=== PATIENT | male | born 1955 | race Caucasian/White ===

== ENCOUNTER 2021-07-29 08:00 | Outpatient (RCR) | payer BC, SELFPAY | END 2021-08-27 07:44 | disposition home or self-care (01) | LOC: HO.PT 08:00 | PROVIDERS: PCP Internal Medicine; Visit Provider Podiatrist Foot & Ankle Surgery | DX: M67.971 Unspecified disorder of synovium and tendon, right ankle and foot (principal) | CPT/HCPCS: 97110; 97112; 97116; 97140; 97161; 97162; 97530 ==

== ENCOUNTER 2021-10-09 14:00 | Outpatient (RCR) | payer BC, SELFPAY | END 2021-11-06 14:54 | disposition home or self-care (01) | LOC: HO.PT 14:00 | PROVIDERS: PCP Internal Medicine; Visit Provider Podiatrist Foot & Ankle Surgery | DX: M67.979 Unspecified disorder of synovium and tendon, unspecified ankle and foot (principal) | CPT/HCPCS: 97110; 97112; 97140; 97162 ==

== ENCOUNTER 2022-06-10 12:43 | Emergency (ER) | payer BC, SELFPAY ==
--- NOTE | ~2022-06-10 | XR_ITS ---
EXAMINATION: XR CHEST CLINICAL INFORMATION: Chest pain COMPARISON: None TECHNIQUE: 2 views of the chest were obtained. FINDINGS: Normal symmetric lung volumes. No parenchymal consolidation. No pleural effusion. No pneumothorax. Cardiomediastinal silhouette and pulmonary vascularity are within normal limits. Aorta is atherosclerotic. No acute osseous abnormalities. XR/XR chest 2V IMPRESSION: No acute findings.
[2022-06-10 12:45] VITALS: BP 150/83; PULSE 71; RESP 20; TEMP 36.5; O2SAT 96; BMI 32.3
--- NOTE | 2022-06-10 12:45 | ECG_ITS ---
Test Reason : CHEST PAIN Blood Pressure : / mmHG Vent. Rate : 072 BPM Atrial Rate : 072 BPM P-R Int : 154 ms QRS Dur : 100 ms QT Int : 388 ms P-R-T Axes : 030 -13 013 degrees QTc Int : 424 ms Sinus rhythm with Premature atrial complexes Intra-ventricular conduction delay Left axis deviation Borderline ECG When compared with ECG of 01-JUL-2012 06:59, Premature atrial complexes are now Present Referred By: Generic ED Physician Electronically Signed By:CARISSA CASTAÑEDA MD
[2022-06-10 12:59] LABS: MANUAL DIFF FLAG NO
[2022-06-10 13:02] LABS: Basophils Percent Auto 0.4 % (0-2); Eosinophils Absolute Auto 0.1 X10*3/uL (0.0-0.4); Eosinophils Percent Auto 1.6 % (0-4); Hematocrit 46.6 % (42.0-52.0); Hemoglobin 15.9 g/dl (14.0-18.0); Imm Gran Abs Auto 0.01 X10*3/uL (0.00-0.03); Imm Gran Pct Auto 0.1 % (0.0-0.4); Lymphocytes Percent Auto 28.6 % (20-40); Mean Corpuscular HGB Conc 34.1 g/dl (31.0-36.0); Mean Corpuscular Hemoglobin 29.8 pg (27.0-33.0); Mean Corpuscular Volume 87.4 fL (80.0-98.0); Mean Platelet Volume 9.8 fL (9.4-12.4); Monocytes Absolute Auto 0.5 X10*3/uL (0.1-1.2); Monocytes Percent Auto 6.7 % (2-11); Neutrophils Absolute Auto 4.3 x10*3/uL (2.0-8.3); Neutrophils Percent Auto 62.6 % (45-73); Platelet Count 152 X10*3/uL (160-400); Red Blood Count 5.33 X10*6/uL (4.60-5.80); Red Cell Distribution Width 12.6 % (11.0-16.0); White Blood Count 6.8 X10*3/uL (4.8-10.8)
[2022-06-10 13:34] LABS: Alanine Aminotransferase 18 U/L (0-40); Albumin Level 4.4 g/dL (3.5-5.0); Alkaline Phosphatase 72 U/L (39-117); Anion Gap 14 (12-20); Aspartate Amino Transferase 16 U/L (5-37); Bilirubin Direct 0.2 mg/dL (0.0-0.5); Bilirubin Total 0.4 mg/dL (0.0-1.0); Blood Urea Nitrogen 13 mg/dL (9-16); Calcium 9.6 mg/dL (8.4-10.2); Carbon Dioxide 23 mmol/L (22-29); Chloride 107 mmol/L (96-108); Creatinine Clr Calc Pharmacy 110.1; Estimated Glomerular Filt Rate > 60; Glucose Random 92 mg/dL (60-115); Lipase 85 U/L (8-78); Potassium 4.1 mmol/L (3.3-5.1); Sodium 140 mmol/L (135-145); Total Protein 6.9 g/dL (6.5-8.0)
[2022-06-10 13:49] LABS: Troponin-I High Sensitivity < 3.5 ng/L (<3.5-35.0)
--- NOTE | 2022-06-10 21:57 | ED_ITS ---
HPI - Chest Pain General Chief Complaint: Chest Pain Stated Complaint: Chest Pain Arm Pain Time Seen by Provider: 06/10/22 21:55 Source: patient Mode of arrival: ambulatory Limitations: no limitations History of Present Illness HPI narrative: Patient is 66 years old male nonsmoker with strong family history of coronary disease otherwise healthy woke up in middle of his sleep 2 days ago with mid chest pain radiating to left side and left arm lasted for about 15-20 minutes felt little dizzy and weak went to sleep woke up in the morning was feeling fine today again around 11:00 o'clock noticed discomfort in left chest lasted for 5- 10 minutes with left arm pain. No shortness of breath no palpitation patient n ever had similar pain in the past. Patient took aspirin earlier today at this time patient does not have any chest pain patient had standing labs done prior to my evaluation which showed normal high sensitive troponin and EKG without ischemic changes patient denies any leg swelling or pain. patient had the flu shot 2 days ago Related Data Allergies Allergy/AdvReac Type Severity Reaction Status Date / Time No Known Allergies Allergy Unverified 05/03/20 14:56 Review of Systems Review of Systems: Yes all other systems are reviewed and are negative [facility] Social History Social History Advance Directives: No Advance Directives Information Provided: No Physical Exam Vital Signs: Vital Signs: Last Vital Signs Temp 97.8 F 06/10/22 23:51 Pulse 54 06/10/22 23:51 Resp 16 06/10/22 23:51 BP 134/72 06/10/22 23:51 Pulse Ox 95 06/10/22 23:51 O2 Del Method 06/10/22 23:51 BMI result Body Mass Index 32.3 Appearance: Alert. Oriented X3. No acute distress. Eyes: PERRLA, No Nystagmus ENT: Pharynx normal. Oral Mucosa moist Neck: Normal inspection. Neck supple. CVS: Normal heart rate and rhythm. Pulses normal. Respiratory: No respiratory distress. Equal air entry bilateral, no wheezing/rales/rhonchi Abdomen: Soft and nontender. Bowel sounds are present, no mass palpable, no CVA tenderness Skin: Skin warm and dry. Normal skin color. Normal skin turgor. Extremities: No lower extremity edema. No calf tenderness Neuro: Oriented X 3. No motor deficit. 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 Result diagrams: 06/10/22 12:54 06/10/22 12:54 Labs: Lab Results 06/10/22 06/10/22 06/10/22 Range/Units 12:54 12:54 12:54 WBC 6.8 (4.8-10.8) X10*3/uL RBC 5.33 (4.60-5.80) X10*6/uL Hgb 15.9 (14.0-18.0) g/dl Hct 46.6 (42.0-52.0) % MCV 87.4 (80.0-98.0) fL MCH 29.8 (27.0-33.0) pg MCHC 34.1 (31.0-36.0) g/dl RDW 12.6 (11.0-16.0) % Plt Count 152 L (160-400) X10*3/uL MPV 9.8 (9.4-12.4) fL Immature Gran % (Auto) 0.1 (0.0-0.4) % Neut % (Auto) 62.6 (45-73) % Lymph % (Auto) 28.6 (20-40) % [place] % (Auto) 6.7 (2-11) % Eos % (Auto) 1.6 (0-4) % Baso % (Auto) 0.4 (0-2) % Lymph # (Auto) 2.0 (1.2-4.9) X10*3/uL [place] # (Auto) 0.5 (0.1-1.2) X10*3/uL Eos # (Auto) 0.1 (0.0-0.4) X10*3/uL Baso # (Auto) 0.0 (0.0-0.2) X10*3/uL Abs Immat Gran (auto) 0.01 (0.00-0.03) X10*3/uL Absolute Neuts (auto) 4.3 (2.0-8.3) x10*3/uL Absolute Nucleated RBC 0.000 (0.0-0.012) X10*3/uL Nucleated RBC % (auto) 0.0 (0.0-0.2) /100WBC PT (10.0-13.1) SEC INR (0.9-1.1) APTT (26.0-36.4) SEC D-Dimer High Sensitivty NG/ML Sodium 140 (135-145) mmol/L Potassium 4.1 (3.3-5.1) mmol/L Chloride 107 (96-108) mmol/L Carbon Dioxide 23 (22-29) mmol/L Anion Gap 14 (12-20) BUN 13 (9-16) mg/dL Creatinine 0.86 (0.5-1.4) mg/dL Estim Creat Clear Calc 110.1 Estimated GFR > 60 Random Glucose 92 (60-115) mg/dL Calcium 9.6 (8.4-10.2) mg/dL Total Bilirubin 0.4 (0.0-1.0) mg/dL Direct Bilirubin 0.2 (0.0-0.5) mg/dL AST 16 (5-37) U/L ALT 18 (0-40) U/L Alkaline Phosphatase 72 (39-117) U/L Troponin I High Sens < 3.5 (<3.5-35.0) ng/L Total Protein 6.9 (6.5-8.0) g/dL Albumin 4.4 (3.5-5.0) g/dL Lipase 85 H (8-78) U/L 06/10/22 06/10/22 06/10/22 Range/Units 22:45 22:45 22:45 WBC (4.8-10.8) X10*3/uL RBC (4.60-5.80) X10*6/uL Hgb (14.0-18.0) g/dl Hct (42.0-52.0) % MCV (80.0-98.0) fL MCH (27.0-33.0) pg MCHC (31.0-36.0) g/dl RDW (11.0-16.0) % Plt Count (160-400) X10*3/uL MPV (9.4-12.4) fL Immature Gran % (Auto) (0.0-0.4) % Neut % (Auto) (45-73) % Lymph % (Auto) (20-40) % [place] % (Auto) (2-11) % Eos % (Auto) (0-4) % Baso % (Auto) (0-2) % Lymph # (Auto) (1.2-4.9) X10*3/uL [place] # (Auto) (0.1-1.2) X10*3/uL Eos # (Auto) (0.0-0.4) X10*3/uL Baso # (Auto) (0.0-0.2) X10*3/uL Abs Immat Gran (auto) (0.00-0.03) X10*3/uL Absolute Neuts (auto) (2.0-8.3) x10*3/uL Absolute Nucleated RBC (0.0-0.012) X10*3/uL Nucleated RBC % (auto) (0.0-0.2) /100WBC PT 12.2 (10.0-13.1) SEC INR 1.1 (0.9-1.1) APTT (26.0-36.4) SEC D-Dimer High Sensitivty < 150 NG/ML Sodium (135-145) mmol/L Potassium (3.3-5.1) mmol/L Chloride (96-108) mmol/L Carbon Dioxide (22-29) mmol/L Anion Gap (12-20) BUN (9-16) mg/dL Creatinine (0.5-1.4) mg/dL Estim Creat Clear Calc Estimated GFR Random Glucose (60-115) mg/dL Calcium (8.4-10.2) mg/dL Total Bilirubin (0.0-1.0) mg/dL Direct Bilirubin (0.0-0.5) mg/dL AST (5-37) U/L ALT (0-40) U/L Alkaline Phosphatase (39-117) U/L Troponin I High Sens < 3.5 (<3.5-35.0) ng/L Total Protein (6.5-8.0) g/dL Albumin (3.5-5.0) g/dL Lipase (8-78) U/L 06/10/22 Range/Units 22:45 WBC (4.8-10.8) X10*3/uL RBC (4.60-5.80) X10*6/uL Hgb (14.0-18.0) g/dl Hct (42.0-52.0) % MCV (80.0-98.0) fL MCH (27.0-33.0) pg MCHC (31.0-36.0) g/dl RDW (11.0-16.0) % Plt Count (160-400) X10*3/uL MPV (9.4-12.4) fL Immature Gran % (Auto) (0.0-0.4) % Neut % (Auto) (45-73) % Lymph % (Auto) (20-40) % [place] % (Auto) (2-11) % Eos % (Auto) (0-4) % Baso % (Auto) (0-2) % Lymph # (Auto) (1.2-4.9) X10*3/uL [place] # (Auto) (0.1-1.2) X10*3/uL Eos # (Auto) (0.0-0.4) X10*3/uL Baso # (Auto) (0.0-0.2) X10*3/uL Abs Immat Gran (auto) (0.00-0.03) X10*3/uL Absolute Neuts (auto) (2.0-8.3) x10*3/uL Absolute Nucleated RBC (0.0-0.012) X10*3/uL Nucleated RBC % (auto) (0.0-0.2) /100WBC PT (10.0-13.1) SEC INR (0.9-1.1) APTT 34.6 (26.0-36.4) SEC D-Dimer High Sensitivty NG/ML Sodium (135-145) mmol/L Potassium (3.3-5.1) mmol/L Chloride (96-108) mmol/L Carbon Dioxide (22-29) mmol/L Anion Gap (12-20) BUN (9-16) mg/dL Creatinine (0.5-1.4) mg/dL Estim Creat Clear Calc Estimated GFR Random Glucose (60-115) mg/dL Calcium (8.4-10.2) mg/dL Total Bilirubin (0.0-1.0) mg/dL Direct Bilirubin (0.0-0.5) mg/dL AST (5-37) U/L ALT (0-40) U/L Alkaline Phosphatase (39-117) U/L Troponin I High Sens (<3.5-35.0) ng/L Total Protein (6.5-8.0) g/dL Albumin (3.5-5.0) g/dL Lipase (8-78) U/L ECG Data ECG #1: Attestation: I personally reviewed and interpreted this ECG as follows: Interpretation: Normal sinus rhythm heart rate 72 beats per minute PACs normal axis normal interval no acute ST-T changes no acute ischemia Discharge Plan Discharge Clinical Impression: Chest pain Patient Disposition: Home, Self-Care Instructions: Chest Pain (ED) Additional Instructions: Take baby aspirin daily Call table worker packager office tomorrow for further evaluation Report to ER if recurrence or worsening of pain Referrals: Vinay Galeana MD [Physician] - 1 day
--- NOTE | 2022-06-10 22:24 | ECG_ITS ---
Test Reason : REPEAT Blood Pressure : / mmHG Vent. Rate : 055 BPM Atrial Rate : 055 BPM P-R Int : 154 ms QRS Dur : 098 ms QT Int : 438 ms P-R-T Axes : 030 011 012 degrees QTc Int : 419 ms Sinus bradycardia Intra-ventricular conduction delay Otherwise normal ECG When compared with ECG of 10-JUN-2022 12:44, Premature atrial complexes are no longer Present Referred By: Hasmukh Roth Electronically Signed By:CARISSA CASTAÑEDA MD
[2022-06-10 23:00] LABS: INTERNATIONAL NORM RATIO 1.1 (0.9-1.1); Prothrombin Time 12.2 SEC (10.0-13.1)
[2022-06-10 23:03] LABS: Partial Thromboplastin Time 34.6 SEC (26.0-36.4)
[2022-06-10 23:04] LABS: D Dimer High Sensitivity < 150 NG/ML
[2022-06-10 23:19] LABS: Troponin-I High Sensitivity < 3.5 ng/L (<3.5-35.0)
[2022-06-10 23:51] VITALS: BP 134/72; PULSE 54; RESP 16; TEMP 36.6; O2SAT 95
== END 2022-06-11 00:01 | disposition home or self-care (01) ==
PROVIDERS: Emergency Provider Internal Medicine; PCP Internal Medicine
DX: R07.89 Other chest pain (principal); M79.602 Pain in left arm; M79.601 Pain in right arm; Z79.899 Other long term (current) drug therapy
CPT/HCPCS: 36415; 71046; 80048; 80076; 83690; 84484; 85025; 85379; 85610; 85730; 93005; 99283

== ENCOUNTER → 2022-06-13 08:50 | Outpatient (REF) | payer BC, SELFPAY ==
--- NOTE | 2022-06-13 08:54 | CA_ITS ---
Acquisition Time: 2022-06-13 08:56:27 Total Exercise Time: 00:09:07 Test Indications: Chest Pain Medications: Protocol: MEGAN Max HR: 144 BPM 92% of Pred: 156 BPM Max BP: 206/050 mmHG Max Work Load: 10.2 METS Exercise stress test with exercise 9 min 7 sec of Megan protocol, acheiving 92% MPHR, 10.2 METs, without anginal symptom, with isolated PVCs, runs of ventricular bigeminy, with hypertensive response to exercise with max BP 206/50, without EKG changes meeting criteria for ischemia, with j point depression and upsloping STs. EKG tracings and report reviewed with Dr Galeana. Referred By: Vinay Galeana Overread By: ALLEGRA MOELLER
== END ==
LOC: HO.CARD 08:50
PROVIDERS: PCP Internal Medicine; Visit Provider Internal Medicine Cardiovascular Disease
DX: R07.9 Chest pain, unspecified (principal)
CPT/HCPCS: 93017

== ENCOUNTER 2022-06-14 09:40 | Outpatient (REF) | payer BC, SELFPAY ==
[2022-06-14 11:35] LABS: Erythrocyte Sedimentation Rate 5 MM/HR (0-15)
[2022-06-16 11:56] LABS: CRP High Sensitivity 4.5 mg/L
== END 2022-06-14 09:41 | disposition home or self-care (01) ==
LOC: HO.LAB 09:40
PROVIDERS: PCP Internal Medicine; Visit Provider Nurse Practitioner Family
DX: R07.89 Other chest pain (principal)
CPT/HCPCS: 36415; 85652; 86141

== ENCOUNTER 2022-06-28 08:23 | Outpatient (REF) | payer BC, SELFPAY ==
[2022-06-28 09:37] LABS: Cholesterol 183 mg/dL; HDL Cholesterol 39 mg/dL; LDL Cholesterol Calculated 122 mg/dl; Triglycerides 110 mg/dL
== END 2022-06-28 08:24 | disposition home or self-care (01) ==
LOC: HO.LAB 08:23
PROVIDERS: PCP Internal Medicine; Visit Provider Internal Medicine Cardiovascular Disease
DX: R07.89 Other chest pain (principal)
CPT/HCPCS: 36415; 80061

== ENCOUNTER 2022-09-08 08:05 | Outpatient (REF) | payer BC, SELFPAY ==
[2022-09-08 09:22] LABS: Cholesterol 132 mg/dL; HDL Cholesterol 40 mg/dL; LDL Cholesterol Calculated 72 mg/dl; Triglycerides 101 mg/dL
== END 2022-09-08 08:06 | disposition home or self-care (01) ==
LOC: HO.LAB 08:05
PROVIDERS: PCP Internal Medicine; Visit Provider Internal Medicine Cardiovascular Disease
DX: R07.89 Other chest pain (principal)
CPT/HCPCS: 36415; 80061

== ENCOUNTER 2023-06-13 09:14 | Outpatient (AMB) | payer MEDICARE, SELFPAY ==
[2023-06-13 09:26] VITALS: BP 124/64; PULSE 80; TEMP 36.9; O2SAT 95; BMI 33.8
--- NOTE | 2023-06-13 09:26 | AM.OFFWIN_ITS ---
Intake Vital Signs 06/13/23 09:26 Height 6 ft Weight 249 lb BMI 33.8 BP 124/64 Blood Pressure Location Rt brachial Position Sitting Pulse 80 Pulse Source Pulse Oximeter Temp 98.5 F Temp Source Oral Pulse Oximetry (%) 95 Oxygen Delivery Method Room Air Intake Visit Reasons: EP Head cold/Sinus Intake Note: Pt is here today c/o h/a, sorethroat, and bilateral ear discomfort x3days Patient Tobacco Use Status: Never used Tobacco Allergies No Known Allergies Allergy (Unverified 06/13/23 09:28) HPI EP Head cold/Sinus HPI Details Patient is a 67-year-old male comes the walk-in clinic complaining of headache, sore throat and ear discomfort for the last 3 days. He also has some associated nausea and anorexia as he does not feel like eating, and states that it is difficult to swallow due to the pain. States pain to his forehead and cheek bone areas were so severe last night that he could not sleep. States that he had some purulence drainage from his nose today. No significant cough, no chest pain or shortness of breath, fever or chills, vomiting or diarrhea, or other significant associated symptoms. He checked for COVID and was negative at home. [facility] Medical History PVCs (premature ventricular contractions) Surgical History Hx of carpal tunnel repair History of cardiac radiofrequency ablation Family History Father Heart valve replaced Mother No problems noted. Social History Patient Tobacco Use Status: Never used Tobacco Review of Systems Const All systems reviewed & are unremarkable except as noted in HPI and below Physical Exam Vital Signs: Last Vital Signs Temp 98.5 F 06/13/23 09:26 Pulse 80 06/13/23 09:26 BP 124/64 06/13/23 09:26 Pulse Ox 95 06/13/23 09:26 Oxygen Delivery Method Room Air 06/13/23 09:26 BMI result Body Mass Index 33.8 Const General: cooperative, healthy appearing, comfortable, no acute distress, alert, awake, Physically active and well groomed; No anxious, diaphoretic, intoxicated appearing, poor hygiene or tired appearing Nutritional Appearance: average body habitus Orientation/consciousness: oriented to person Limitations: no limitations HEENT Head: Yes normal to inspection, Yes normocephalic and Yes atraumatic Ears: hearing grossly normal bilaterally, external ears normal, TM's normal bilaterally and EAC's normal General nose exam: Normal external nose present, No nasal polyps present, Normal septum present, Abnormal mucous membranes and turbinates present and Nasal discharge present Face and sinus: Yes sinus tenderness Mouth: Normal oral and palatal mucosa present, lip normal and tongue normal Throat: Yes abnormal tonsil (mildly erythematous bilaterally), No peritonsillar mass, Yes postnasal drainage, No uvular edema and No cobblestoning Eyes General: appearance normal, both eyes and all related structures Neck Neck: Yes normal visual inspection, Yes no lymphadenopathy, Yes trachea midline, Yes supple and No anterior neck swelling Resp Effort & Inspection: normal respiratory effort, able to speak in complete sentences, no audible wheezes, no cough, no grunting, not labored, no nasal flaring, no retractions and symmetric chest movement Auscultation: clear to auscultation bilaterally, no crackles, no rales, no rhonchi, no wheezes, lung sounds not diminished and No rub present Cardio Palpation: normal PMI Rate: regular rate Rhythm: regular rhythm Heart sounds: S1 normal heart sound present and S2 normal heart sound present Skin Other: Good color, warm and dry Neuro General: oriented to person Psych Appearance: grossly normal Mental Status: mental status grossly normal Speech and movement: Normal speech and movement present Affect: normal affect Attitude: cooperative Thought process: Normal thought process present Insight: Good insight present (Psych) Judgement: Good judgement present (Psych) Results AMB Rapid Strep AMB Rapid Strep Negative Last Edit by Itzel Hope CMA on 06/13/23 09:45 Results Reviewed Results Reviewed: Laboratory Last Values Strep Scn Rapid Clinic Negative 06/13/23 09:44 negative rapid strep Assessment & Plan Assessment & Plan (1) Sinusitis: Code(s): J32.9 - Chronic sinusitis, unspecified Qualifiers: Chronicity: acute Recurrence: non-recurrent Sinusitis location: frontal Qualified Code(s): J01.10 - Acute frontal sinusitis, unspecified Plan: Patient was negative for COVID on home rapid tests, but will do respiratory panel today to rule out COVID, as well as flu and RSV. Pending these results. I do think a virus is the likely cause of his symptoms, and I think that taking ibuprofen or another anti-inflammatory will be the best option for him. However due to the apparent purulent discharge as well as his complaint of severe pain keeping him up at night, I did write him for a course of Augmentin, to take if symptoms are not improving in the next few days with the [id number] Mucinex and cough medicine. Orders: Orders SARS-CoV2/FLU/RSV Today R05.9 - Cough, unspecified AMB Rapid Strep Screen Today Z13.9 - Encounter for screening, unspecified Medications: New amoxicillin-pot clavulanate 875-125 mg 1 tab PO BID 10 tabs 0RF Coding Level of Care Code Est Pt Level 4 (63179) Diagnoses Acute non-recurrent frontal sinusitis J01.10 Chronicity: acute Recurrence: non-recurrent Sinusitis location: frontal
== END 2023-06-13 12:34 | disposition home or self-care (01) ==
PROVIDERS: PCP Internal Medicine; Visit Provider Physician Assistant Medical
DX: J01.10 Acute frontal sinusitis, unspecified (principal); J02.9 Acute pharyngitis, unspecified
CPT/HCPCS: 87880; 99214

== ENCOUNTER 2023-06-13 09:44 | Outpatient (REF) | payer MEDICARE, SELFPAY | END 2023-06-13 09:45 | disposition home or self-care (01) | LOC: HO.LAB 09:44 | PROVIDERS: Visit Provider Physician Assistant Medical | DX: Z13.89 Encounter for screening for other disorder (principal) ==

== ENCOUNTER 2023-06-13 11:34 | Outpatient (REF) | payer MEDICARE, SELFPAY ==
[2023-06-13 13:21] LABS: Influenza A PCR NEGATIVE (Negative); Influenza B PCR NEGATIVE (Negative); Resp Syncy Virus RNA Qual PCR NEGATIVE (Negative); SARS COV2 PCR INHOUSE NEGATIVE (Negative)
== END 2023-06-13 11:35 | disposition home or self-care (01) ==
LOC: HO.LNP 11:34
PROVIDERS: Visit Provider Physician Assistant Medical
DX: Z11.52 Encounter for screening for COVID-19 (principal); Z20.822 Contact with and (suspected) exposure to COVID-19; R05.9 Cough, unspecified
CPT/HCPCS: 0241U

== ENCOUNTER 2023-06-24 08:59 | Outpatient (AMB) | payer MEDICARE, SELFPAY ==
--- NOTE | 2023-06-24 09:38 | AM.OFFWIN_ITS ---
Intake Vital Signs 06/24/23 09:40 Height 6 ft Weight 249 lb BMI 33.8 BP 122/64 Blood Pressure Location Lt brachial Position Sitting Pulse 96 Pulse Source Pulse Oximeter Temp 98.9 F Temp Source Temporal Artery Scan Pulse Oximetry (%) 100 Oxygen Delivery Method Room Air Intake Visit Reasons: EST/ sore throat/cough(lobby masked) Intake Note: Pt is here c/o sore throat, coigh and ongoing headache. Pt states he has been feeling like this for two weeks. Pt states he was on amoxicillin and it didn't help. Patient Tobacco Use Status: Never used Tobacco Allergies No Known Allergies Allergy (Verified 06/24/23 10:12) Medication List - Last Reconciled 06/24/23 by KIN Fermin- aspirin (Adult Aspirin Regimen) 81 mg PO DAILY atorvastatin 40 mg PO DAILY cetirizine (24Hour Allergy) 10 mg PO DAILY PRN finasteride 5 mg PO DAILY fluoxetine 20 mg PO DAILY ibuprofen 600 mg PO Q6H PRN tamsulosin 0.8 mg PO DAILY Do you need a note to return to daycare/school/sports/work: No HPI HPI Comments History of Present Illness Details Here today he has complaints of flu-like symptoms. Reports has been sick for > 2 weeks. Was treated with amoxicillin June 13. He completed the course but does not feel any better. Addition he has been taking Mucinex DM along with Motrin. Today he complains of a cough, left ear pain, headache, painful swallowing, hoarse voice. Reports that he was found negative for flu and COVID back on the 13 of June. He denies recent travel, associated with similar symptoms, chest pain, shortness of breath. [facility], [facility] Medical History PVCs (premature ventricular contractions) Surgical History Hx of carpal tunnel repair History of cardiac radiofrequency ablation Family History Father Heart valve replaced Mother No problems noted. Social History Patient Tobacco Use Status: Never used Tobacco Review of Systems Const All systems reviewed & are unremarkable except as noted in HPI and below Physical Exam Vital Signs: Last Vital Signs Temp 98.9 F 06/24/23 09:40 Pulse 96 06/24/23 09:40 BP 122/64 06/24/23 09:40 Pulse Ox 100 06/24/23 09:40 Oxygen Delivery Method Room Air 06/24/23 09:40 BMI result Body Mass Index 33.8 Const Other: awake alert mildly ill appearing but in NAD PERRLA, EOMI, Scleras clear bilat TM intact clear on R, injected on L + L max and frontal sinus tenderness to palp. turbinates on L edematous & erythematous, mucoid d/c left nares RRR LS CTAB. hacking cough w/o distress noted during exam Skin PWD Results AMB Rapid Strep AMB Rapid Strep Negative Last Edit by Katelynn Almonte CMA on 06/24/23 09:50 Results Reviewed Results Reviewed: Laboratory Last Values Strep Scn Rapid Clinic Negative 06/24/23 09:49 Assessment & Plan Assessment & Plan (1) Flu-like symptoms: Code(s): R68.89 - Other general symptoms and signs Plan VIRAL SWAB OBTAINED TODAY, IF NEGATIVE STOP AB. I HAVE SENT IN [place] AND AB TO COVER SINUSIITS. CXR TO BE DONE GIVEN THE CONT COUGH. ADVISED TO STOP MUCINEX DM. START FLONASE OTC. USE DIRECTED. IF VIRAL SWAB NEG OK TO CONT AB DIRECTED ALONG W [place]. IF NO IMPROVEMENT, RETURN TO CLINIC Orders: Orders SARS-CoV2/FLU/RSV Today R68.89 - Other general symptoms and signs RAKESH Fermin AMB Rapid Strep Screen Today Z13.9 - Encounter for screening, unspecified Papi Salinas MD XR chest 2V Today R68.89 - Other general symptoms and signs RAKESH Fermin Medications: New benzonatate 100 mg PO TID 10 days PRN 30 caps 1RF cough ARKESH Fermin azithromycin For 250 mg dose pack: take 500 mg today (day 1), then 250 mg for 4 days (days 2-5) PO 5 days 6 tabs 0RF RAKESH Fermin Coding Level of Care Code Est Pt Level 3 (03661) Diagnoses Flu-like symptoms R68.89
[2023-06-24 09:40] VITALS: BP 122/64; PULSE 96; TEMP 37.2; O2SAT 100; BMI 33.8
== END 2023-06-24 10:50 | disposition home or self-care (01) ==
PROVIDERS: PCP Internal Medicine; Visit Provider Nurse Practitioner Family
DX: R68.89 Other general symptoms and signs (principal); J02.9 Acute pharyngitis, unspecified
CPT/HCPCS: 87880; 99213

== ENCOUNTER 2023-06-24 10:20 | Outpatient (REF) | payer MEDICARE, SELFPAY ==
--- NOTE | ~2023-06-24 | XR_ITS ---
EXAMINATION: XR CHEST CLINICAL INFORMATION: Malaise. COMPARISON: 06/10/2022 TECHNIQUE: 2 views of the chest were obtained. FINDINGS: The lungs are moderately expanded. No focal consolidation. No pleural effusion. Cardiac silhouette is unchanged. XR/XR chest 2V IMPRESSION: No acute abnormality.
[2023-06-24 14:00] LABS: Influenza A PCR NEGATIVE (Negative); Influenza B PCR NEGATIVE (Negative); Resp Syncy Virus RNA Qual PCR NEGATIVE (Negative); SARS COV2 PCR INHOUSE NEGATIVE (Negative)
== END 2023-06-24 10:21 | disposition home or self-care (01) ==
LOC: HO.HMGCX 10:20
PROVIDERS: PCP Internal Medicine; Visit Provider Nurse Practitioner Family
DX: R68.89 Other general symptoms and signs (principal); Z20.822 Contact with and (suspected) exposure to COVID-19
CPT/HCPCS: 0241U; 71046

== ENCOUNTER 2024-11-18 09:00 | Outpatient (AMB) | payer MEDICARE, SELFPAY ==
--- NOTE | 2024-11-18 09:06 | AM.OFFWIN_ITS ---
Intake Vital Signs 11/18/24 09:08 Height 6 ft BP 120/72 Blood Pressure Location Lt brachial Position Sitting Pulse 80 Pulse Source Pulse Oximeter Temp 97.9 F Temp Source Oral Pulse Oximetry (%) 98 Intake Visit Reasons: EP Neck pain Patient Tobacco Use Status: Never used Tobacco Allergies No Known Allergies Allergy (Verified 11/18/24 09:08) Do you need a note to return to daycare/school/sports/work: No HPI EP Neck pain HPI Details This is a 68-year-old male patient who presents to the walk-in clinic today with a 4 day history of posterior neck pain, right greater than left. He denies any injury or trauma to neck. No history of cervical surgery. He states that this past Thursday, he woke up and neck was very stiff. Since then, he has tried heat and ice application, topical creams including CBD cream. He states he also took 3 ibuprofen this morning without any relief. States that neck feels very stiff/tight with increased pain towards his right clavicle. No weakness or radiation down arms. Denies any numbness or tingling. [facility] Medical History PVCs (premature ventricular contractions) Surgical History Hx of carpal tunnel repair History of cardiac radiofrequency ablation Family History Father Heart valve replaced Mother No problems noted. Social History Patient Tobacco Use Status: Never used Tobacco Review of Systems Const All systems reviewed & are unremarkable except as noted in HPI and below Physical Exam Vital Signs: Last Vital Signs Temp 97.9 F 11/18/24 09:08 Pulse 80 11/18/24 09:08 BP 120/72 11/18/24 09:08 Pulse Ox 98 11/18/24 09:08 Const Other: uncomfortable due to neck pain General: cooperative HEENT Head: Yes normal to inspection Ears: hearing grossly normal bilaterally General nose exam: Normal external nose present Neck Neck: Yes no lymphadenopathy Resp Effort & Inspection: normal respiratory effort Auscultation: clear to auscultation bilaterally Cardio Rate: regular rate Rhythm: regular rhythm Back/Spine/Pelvis Other: negative spurling Cervical Spine: cervical muscular tenderness (bilateral, R>L), pain with cervical ROM, cervical spasm and cervical ROM abnormal (minimal lat rotation/side bending and extension, all about 5 degrees) Skin General skin exam: no rashes or lesions noted Neuro General: gait normal and moves all extremities Cognition (Neuro): normal cognition Extrem Other: normal shoulder ROM b/l General: Yes full ROM, Yes capillary refill normal and Yes no clubbing, cyanosis or edema Psych Appearance: grossly normal Mental Status: mental status grossly normal Speech and movement: Normal speech and movement present Assessment & Plan Assessment & Plan (1) Cervical strain, acute: Code(s): S16.1XXA - Strain of muscle, fascia and tendon at neck level, initial encounter Qualifiers: Encounter type: initial encounter Qualified Code(s): S16.1XXA - Strain of muscle, fascia and tendon at neck level, initial encounter Plan: Cervical x-ray obtained in the office today shows no acute abnormalities, however moderate spondylosis most significant spanning C4-C7. Patient is in significant pain on exam with extremely stiff/limited mobility of neck. I am going to start him on short course of prednisone and muscle relaxers. We reviewed indications, use, possible side effects of medications. I encouraged ongoing heat application, gentle stretching and massage. If he does not begin to improve with time and treatment, he should return to the clinic or PCP for further evaluation. Patient verbalizes understanding and agrees to plan. Orders: Orders XR cervical spine 2V Today M54.2 - Cervicalgia Medications: New cyclobenzaprine Take up to three times a day as needed for muscle pain/spasms. 10 mg PO TID 5 days PRN 15 tabs 0RF muscle spasm S16.1XXA - Strain of muscle, fascia and tendon at neck level, initial encounter prednisone Take 2 tabs daily for 5 days. 40 mg (2 x 20 mg) PO DAILY 5 days 10 tabs 0RF S16.1XXA - Strain of muscle, fascia and tendon at neck level, initial encounter Coding Level of Care Code Est Pt Level 4 (87335) Diagnoses Acute strain of neck muscle, initial encounter S16.1XXA Encounter type: initial encounter
[2024-11-18 09:08] VITALS: BP 120/72; PULSE 80; TEMP 36.6; O2SAT 98
--- OUTSIDE RECORDS SUMMARY | 2024-11-18 09:37 | XMS_ITS | Patient Health Record ---
Author Organization [facility] Reginald Montesinos Address [address] [facility] [place] [address] Care Team Providers Care Risk Assessment Consultant Name Role Phone Carlos Ivy MD Primary Care Provider Unavailabl e Black, Nury Unavailable [phone] Allergies Allergen (clinical drug ingredient) Drug/Non Drug Allergy documented on EMR Reaction Allergy Type Onset Date Status Dust Mite Mixed Allergen Ext Unknown Drug Allergy Active Reason For Referral No Information Medications Medication SIG (Take, Route, Frequency, Duration) Notes Start Date End Date Status Naproxen Not-Taking Diclofenac Sodium 3 % 1 application to a ffected area Transdermal Twice a day for 30 day(s) 05/16/2019 Not-Taking Diclofenac Sodium 1 % as directed Transd ermal Twice a day for 30 days 05/23/2019 Not-Taki ng Lipitor 40 MG 1 tablet Orally Once a day Active [employer] as directed 11/15/2021 Active Tamsulosin HCl 0.4 MG 1 capsule Orally O nce a day for 30 day(s) Active Ibuprofen prn Active Finasteride Active Immunizations Vaccine Route Administration Date Status Comme nts COVID-19 Pfizer BioNTech Vaccine Unknown 07/22/2021 Administered 1st 11/20/2020 2nd 12/11/2020 Social History Tobacco Use: Social History Observation Description Date Details (start date - stop date) Never Smoker NA - NA Tobacco Use/Smoking Question Answer Notes Are you a: nonsmoker Additional Findings: Tobacco Non-User Current no n-smoker Alcohol Screen Question Answer Notes Did you have a drink containing alcohol in the p ast year? No Points 0 Interpretation Negative Tobacco use other than smoking: Question Answer Notes Are you an other tobacco user? No Problems Problem Type SNOMED Code ICD Code Onset Dates Problem Status W/U Status Risk Notes Problem Localized, primary osteoarthritis of the ankle and/or foot (451952153) Primary osteoarthritis , right ankle and foot (M19.071) Active confirmed Problem Localized, primary osteoarthritis of the ankle and/or foot (297481241) Primary osteoarthritis , left ankle and foot (M19.072) Active confirmed Problem 32875585 Lower limb length difference (M21.70) Active confirmed Plan Of Treatment Pending Test Test Name Order Date X ray : Foot, left 2V 08/22/2021 X ray : Foot, right 2V 08/22/2021 X ray : Foot, right 3V 08/07/2014 X ray : Foot, right 3V 03/24/2017 09577, J0702- INJECT or DRAIN, JOINT/BUR SA 07/14/2022 14814, X3708-MTNXH/INJECT, JOINT/BURSA 0 04/24/2022 02340,[id number]-NAM TENDON SHEATH/LIGAMENT 0 03/24/2017 08936, J0702- Neuroma/Injection 05/08/20 11 Insurance Providers Payer Name Payer Address Payer Phone Subscriber Number Group Number Insured Name Patient Relationship to Insured Coverage Start Date Coverage End Date Srinath Araiza [address] [place] [address] [id number] Hai Gutierrez Self - patient is the insured Medical (General) History Medical History History ICD Code measles hypertension chicken pox back, hip, knee pain Arthritis Surgical History Surgery Date(Month/Year) finger surgery 1982 vasectomy 1992 bilateral elbow surgery and carpal tunne l 07/2013 Prostate biopsy 02/11/2017 R foot surgery 01/22/21
--- OUTSIDE RECORDS SUMMARY | 2024-11-18 09:37 | XMS_ITS | Continuity of Care Document ---
Author Organization [facility] [address] [address]- Care Team Providers Care Student Affairs Vice President Name Role Phone Carlos Ivy MD Primary Care Physician Encounter [facility] [place] Date(s): 11/07/24 - 11/14/24 [facility] [address] [address] Attending Physician: Shlomo Sullivan MD Referring Physician: Carlos Ivy MD Encounter Type: Office Visit Allergies, Adverse Reactions, Alerts No Known Allergies Immunizations Given and Recorded Vaccine Date Status Refusal Reason influenza virus vaccine, inactivated 05/29/23 David rded influenza virus vaccine, inactivated 06/08/22 David rded influenza virus vaccine, inactivated 05/20/21 David rded influenza virus vaccine, inactivated 1 05/29/17 Re corded influenza virus vaccine, inactivated 07/19/16 Give n influenza virus vaccine, inactivated 05/14/15 Give n influenza virus vaccine, inactivated 2 05/17/14 Re corded influenza virus vaccine, inactivated 07/08/13 Give n pneumococcal 20-valent conjugate vaccine 01/19/23 Given tetanus-diphtheria toxoids (Td) 08/25/22 Given SARS-CoV-2 (COVID-19) mRNA BNT-162b2 vac 07/22/21 Recorded SARS-CoV-2 (COVID-19) mRNA BNT-162b2 vac 12/11/20 Recorded SARS-CoV-2 (COVID-19) mRNA BNT-162b2 vac 11/20/20 Recorded zoster vaccine, inactivated 08/01/20 Recorded zoster vaccine, inactivated 05/08/20 Recorded Influenza Virus Vaccine (oldterm) 05/26/19 Recorde d FluLaval (oldterm) 3 04/30/12 Given Tet/Diphth/Acel, Pertussis (oldterm) 11/25/11 Give n 1Result Comment: [06/01/2017] [facility] 2Result Comment: [05/19/2014] Done at work 3Admin Note: [employer] [facility] Medications aspirin 81 mg oral capsule 1 capsule = 81 mg, By Mouth, Every 4 hours, 0 Refills, Maintenance, 06/12/22 8:06:00 AM EDT, Partial fill upon patient request if the prescription is for a schedule II opioid drug. Start Date: 06/12/22 Status: Ordered Repeat number: 1 atorvastatin 40 mg oral tablet 1 tablet = 40 mg, By Mouth, Daily, # 90 tablet, 1 Refills, Maintenance, 06/06/24 1:05:00 PM EDT, Tablet, [facility], Partial fill upon patient request if the prescription is for a schedule II opioid drug., 183.9, cm, 02/01/24 7:48:00 EDT, Height Start Date: 06/06/24 Status: Ordered Quantity: 90.0 Unit: tablet Repeat number: 2 CeleBREX 200 mg oral capsule 1 capsule = 200 mg, By Mouth, Daily, 0 Refills, Maintenance, 02/01/24 7:55:00 AM EDT, Partial fill upon patient request if the prescription is for a schedule II opioid drug. Start Date: 02/01/24 Status: Ordered Repeat number: 1 CPAP Equipment See Instructions, # 1 each, Refills 11, Tot. Refills 11, Maintenance, Dx: PAULO Head gear, Mask, cushion, filter, water chamber. Use qhs, 11/16/20 8:08:00 AM EDT, Supply Start Date: 11/16/20 Status: Ordered Quantity: 1.0 Unit: each Repeat number: 12 CPAP Equipment See Instructions, # 1 each, Refills 11, Tot. Refills 11, Maintenance, CPAP 12- DX: PAULO MASK, TUBING,FILTERS,HEAD GEAR, CHIN STRAP AND WATER CHAMBER, 11/20/16 1:13:39 PM EDT, Compound Start Date: 11/20/16 Status: Ordered Quantity: 1.0 Unit: each Repeat number: 12 finasteride 5 mg oral tablet 1 tablet = 5 mg, By Mouth, Daily, # 90 tablet, 0 Refills, Maintenance, 01/14/22 3:13:00 PM EDT, Tablet, Partial fill upon patient request if the prescription is for a schedule II opioid drug. Start Date: 01/14/22 Status: Ordered Quantity: 90.0 Unit: tablet Repeat number: 1 Flonase = 50 mcg, Daily, 0 Refills, Maintenance, 02/01/24 7:55:00 AM EDT, Partial fill upon patient request if the prescription is for a schedule II opioid drug. Start Date: 02/01/24 Status: Ordered Repeat number: 1 FLUoxetine 20 mg oral capsule 1, capsule, By Mouth, Daily, # 90 capsule, Refills 1, Maintenance, 08/30/24 1:52:00 PM EST, Route toPharmacy Electronically, [facility], 183.9, cm, 02/01/24 7:48:00 EDT, Height Start Date: 08/30/24 Status: Ordered Quantity: 90.0 Unit: capsule Repeat number: 1 Multivitamin Daily, 0 Refills, Maintenance, 01/14/22 3:14:00 PM EDT, Partial fill upon patient request if the prescription is for a schedule II opioid drug. Start Date: 01/14/22 Status: Ordered Repeat number: 1 tamsulosin 0.4 mg oral capsule 180 capsule, Refills 0, 02/25/22 1:23:00 PM EDT, Partial fill upon patient request if the prescription is for a schedule II opioid drug. Start Date: 02/25/22 Status: Ordered Repeat number: 1 Vitamin D2 2000 intl units oral capsule 1 capsule = 50 mcg, By Mouth, Daily, with food, # 60 capsule, 0 Refills, Maintenance, 01/14/22 3:14:00 PM EDT, Capsule, Partial fill upon patient request if the prescription is for a schedule II opioid drug. Start Date: 01/14/22 Status: Ordered Quantity: 60.0 Unit: capsule Repeat number: 1 Problem List Condition Confirmation Course Effective Dates Status Health Status Informant Anxiety Confirmed Active BPH with elevated PSA Confirmed Active Carpal tunnel Confirmed 11/25/11 Active Cataract Confirmed Active Colonoscopy 1, 2 Confirmed Active Coronary artery disease Confirmed Active Glucose intolerance Confirmed Active Dyspnea Confirmed Active Right foot pain Confirmed Active Gastroesophageal reflux disease with hiatal hernia 3 Confirmed Active History of diverticulitis of colon Confirmed Active Headache disorder Confirmed Active Internal and external hemorrhoids without complication 4 Confirmed Active Hypercholesterolemia Confirmed Active Glucose intolerance (impaired glucose tolerance) Confirmed Active Abdominal pain, chronic, left upper quadrant Confirmed Active Malaise and fatigue Confirmed Active Moderate major depression, single episode Confirmed Active Near syncope 5 Confirmed Active NSVT (nonsustained ventricular tachycardia) Confirmed Active Obese class I Confirmed Active Obesity (BMI 30-39.9) Confirmed Active PAULO (obstructive sleep apnea) Confirmed Active Psoriasis Confirmed Active Elevated PSA 6 Confirmed Active Thrombocytopenia Confirmed Active Vitreous degeneration, bilateral 7 Confirmed Active 46608; repeat 2026 2colo 2009 nl, repeat colo 2019 3egd 2009 no barretts per pt. 4colo 2019 likely neurocardiogenic, followed by heather 6Followed by Dr. Mcginnis 7dxed by Avelino Vital Signs Most recent to oldest [Reference Range]: 1 Height 183.9 cm (11/07/24 10:37 AM) Weight 117 kg (11/07/24 10:37 AM) Body Mass Index [18.5-24.99 kg/m2] 34.6 kg/m2 *>HHI* (11/07/24 10:37 AM) Weight Obtained Via Standing scale (11/07/24 10:37 AM) Social History Social History Type Response Smoking Status Never smoker; Tobacc o user in household: No entered on: 04/21/17 Sex Sex Representation Male (finding) Patient Care team information Care Team Personnel Name: Carlos Ivy MD Position: S Physician - Primary Care Member Role: PCP Address: [address] [place] [address]- Telecom: Care Team Related Persons Name: BROOKE OTT Insurance Providers Guarantor name: OSMEL OTT Health Plan Information #: 1 Payer: NA Member Number: [id number] Policy Number: NA Group Number: NA Health Plan Information #: 2 Payer: NA Member Number: [id number] Policy Number: NA Group Number: NA
--- OUTSIDE RECORDS SUMMARY | 2024-11-18 09:38 | XMS_ITS | Clinical Summary ---
Author Organization [facility] Address [address] [place] [address] Care Team Providers Care Cut Off Saw Operator Metal Name Role Phone Carlos Ivy MD Primary Care Provider [phone] Allergies Active Allergy Reactions Criticality Noted Date Comments Mite (D. Farinae) 07/14/2022 Other reaction(s): Unknown Medications Medication Sig Dispensed Refills Start Date End Date Status finasteride (PROSCAR) 5 MG tablet 0 05/30/2022 Active tamsulosin (FLOMAX) 0.4 MG CAPS 1 capsule 0 09/14/2017 Active methylPREDNISolone (Medrol) 4 MG tablet follow package directions 21 tablet 0 10/07/2022 Active Active Problems No known active problems Social History Tobacco Use Types Packs/Day Years Used Date Smoking Tobacco: Never Smokeless Tobacco: Never Tobacco Cessation:Counseling Given: Not Answered Alcohol Use Standard Drinks/Week Comments Not Currently 0 (1 standard drink = 0.6 oz pur e alcohol) Sex and Gender Information Value Date Recorded Sex Assigned at Not on file Gender Identity Not on file Sexual Orientation Not on file Job Start Date Occupation Industry Not on file Not on file Not on file Last Filed Vital Signs Vital Sign Reading Time Taken Comments Blood Pressure - - Pulse - - Temperature - - Respiratory Rate - - Oxygen Saturation - - Inhaled Oxygen Concentration - - Weight 106.6 kg (235 lb) 10/07/2022 11:14 AM EST Height 182.9 cm (6') 10/07/2022 11:14 AM EST Body Mass Index 31.87 10/07/2022 11:14 AM EST Plan of Treatment Health Maintenance Due Date Last Done Comments Hepatitis C Screening 1957 Depression Screening 1969 BMI Counseling 12/14/1975 Preventative Health Evaluation 12/14/1975 Colon Cancer Screening (Colonoscopy) 2002 DTap / Tdap / Td (1 - Tdap) 08/26/2022 08/25/2022 Fall Risk Assessment 2022 Pneumococcal Vaccine (1 of 1 - PCV) 2022 COVID-19 Vaccine (4 - season) 2024 07/22/2021, 12/11/2020, 11/20/2020 Influenza Vaccine (#1) 2024 2, 05/20/2021, 05/29/2017, Additional history exists RSV Adult > 60+ Yrs or (1 - 1-dose 75+ series) 2032 Shingrix-Zoster Vaccine Completed 08/01/2020, 05/08 Hepatitis B Vaccines Aged Out No long er eligible based on patient's age to complete this topic RSV Ped < 20 months Aged Out No longe r eligible based on patient's age to complete this topic Care Teams Cut Off Saw Operator Metal Relationship Specialty Start Date End Date Carlos Ivy MD [address] [place] [address] PCP - General Internal Medicine 06/24/22
--- OUTSIDE RECORDS SUMMARY | 2024-11-18 09:38 | XMS_ITS | Data Portability ---
Author Organization [place] [facility] Address [address] [place] [id number] Care Team Providers Care Golf Course Superintendent Name Role Phone DENNYS FOSTER Primary Care Provider Assessment Encounter Date Assessment Date Assessment LastModified by Organization Details LastModified Time 05/20/2024 05/20/2024 68-year-old male presents for updated audiometric testing. Otologic exam is unremarkable today. Audiometric testing shows stable high-frequency sensorineural hearing loss bilaterally which is only slightly asymmetrical. Would recommend continued observation with repeat hearing test in 1 year or sooner for acute changes. All questions were answered. [email or web address] Not available 05/20/2024 14:05:53 Plan of Treatment Reminders Order Date Submit Date Provider Last Modified By Organization Details Last Modified Time Details Appointments Establish ed 15 2024 10:00A M MARINA ROMO PA-C Not available Not available Not available Lab None recorded. Referral None recorded. Procedures None recorded. Surgeries None recorded. Imaging None recorded. Medication Orders None recorded. Patient TargetsNo targets recorded. Patient InstructionsNo instructions recorded. Reason for Referral None Reported. Results Created Date Observation Date Name Description Value Unit Range Abnormal Flag Note LastModifiedBy Organization Detail LastModifiedTime 05/20/20 24 audio gram No observ ation record ed. [email or web address] Not Available 2023 15:00:52 Result Notes None recorded. Problems Name Problem SNOMED Code Status Onset Date Resolution Date Notes Provider Name and Address Organization Details Recorded Time Chronic rhinitis 47548033 Active 2020 Chronic rhinitis; Note: Date Diagnosed : 01/11/2021 2:46 PM (J31.0) Not Available [facility] 03:09:32 Sensorine ural hearing loss of bilateral ears 292271050 Active 2020 Sensorine ural hearing loss, bilateral ; Note: Date Diagnosed : 1 3:53 PM (H90.3) Not Available [facility] 4 03:09:32 Bilateral tinnitus 61231430549 02 Active 2020 Tinnitus, bilateral ; Note: Date Diagnosed : 1 3:53 PM (H93.13) Not Available [facility] 4 03:09:32 Obstructi ve sleep apnea syndrome 86494264 Active 2020 Obstructi ve sleep apnea (adult) (pediatri c); Note: Date Diagnosed : 01/11/2021 2:47 PM (G47.33) Not Available [facility] 4 03:09:32 Deviated nasal septum 096780349 Active 2020 Deviated nasal septum; Note: Date Diagnosed : 05/20/2021 1:16 PM (J34.2) Not Available [facility] 4 03:09:31 Problem Notes None recorded. Procedures Surgical History Date Name Laterality Status Provider Name and Address Organization Details Recorded Time 05/20/2024 Comp Audio with Tymps (53901 & 11972) completed ARIE SHAFFER [place], [facility], [address], [place] - [facility] 05/20/2024 13:37:31 Imaging Results Imaging Date Name Status LastModified by Organiz ation Details LastModified Time 05/20/2024 audiogram completed [email or web address] Information no t available 05/20/2024 15:00:52 Procedure Notes None recorded. Medical Equipment None Reported. Medications Name Sig Start Date Stop Date Status Note LastModified by Organization Details LastModified Time celecoxib 200 mg capsule TAKE 1 CAPSULE BY MOUTH EVERY DAY active Not Available Not Available No t Available atorvasta tin 40 mg tablet active Not Available Not Available Not Available azithromy samanta 250 mg tablet TAKE 2 TABLETS BY MOUTH TODAY, THEN TAKE 1 TABLET DAILY FOR 4 DAYS DIRECTED active Not Available Not Available No t Available ondansetr on HCl 4 mg tablet 2020 active Medicati on ID: [id number] B rand Name: ace snow HCl Send Method: E-Prescr ibed Sub s Allowed: subs OK Medic ationGen ericName : ondanset gwendolyn HCl Not Available Not Available Not Available tamsulosi n 0.4 mg capsule active Not Available Not Available Not Available benzonata te 100 mg capsule TAKE 1 CAPSULE BY MOUTH 3 TIMES A DAY NEEDED FOR COUGH FOR 10 DAYS active Not Available Not Available No t Available azelastin e 137 mcg (0.1 %) nasal spray 2 spray 2020 active Medicati on ID: [id number] D uration Value: 30 Prescri bed By Name: Kee Valera nd Name: azelasti ne Send Method: E-Prescr ibed Sub s Allowed: subs OK Medic ationGen ericName : azelasti ne Not Available Not Available Not Available fluoxetin e 20 mg capsule active Not Available Not Available Not Available ipratropi um bromide 21 mcg (0.03 %) nasal spray 2 spray 05/20 completed Medicati on ID: [id number] P rescribe d By Name: Kee Valera nd Name: ipratrop ium bromide Send Method: E-Prescr ibed Sub s Allowed: subs OK Medic ationGen ericName : ipratrop ium bromide Not Available Not Available Not Available finasteri de 5 mg tablet active Not Available Not Available Not Available amoxicill in 875 mg-potass ium clavulana te 125 mg tablet TAKE 1 TABLET BY MOUTH TWICE A DAY active Not Available Not Available No t Available Vitals Date Recorded Body height Body mass index (BMI) Body weight Provider Name and Address Organization Details Last Updated DateTime 05/20/2024 187.96 cm 31.6 kg/m2 755887.72 g Duarte Martínez MA [facility] 05/20/2024 13:42:35 Social History None recorded. Functional Status None recorded. Mental Status None recorded. Family History Nothing Reported. Medical History No medical history recorded. Past Encounters Encounter ID Performer Location Encounter Start Date Encounter Closed Date Diagnosis/Indication Diagnosis SNOMED-CT Code Diagnosis ICD10 Code Diagnosis Note FRANCIS GOFF MD [facility] [address] [place] [address] 05/20/2024 13:01:43 05/20/2024 13:59:46 Bilateral tinnitus 7296459195 102 H93.13 Sensorineu ral hearing loss of bilateral ears 744760220 H90.3 Audiologic al evaluation results: Right ear: {{Normal N ormal through 2 kHz Mild M oderate Mo derately-s evere Lory re Profoun d Normal hearing thru 3000Hz#}} {{hearing sloping to a mild slopi ng to a moderate s loping to moderately severe slo ping to severe slo ping to profound f lat high frequency low frequency mid frequency cookie bite atkins curve drop ping to a mild SNHL#}} {{with* se nsorineura l hearing loss with condu ctive hearing loss with mixed hearing loss with}} {{excellen t* good fa ir poor no measurable }} word recognitio n. Left ear: {{Normal N ormal through 2 kHz Mild M oderate Mo derately-s evere Lory re Profoun d Normal hearing thru 2000Hz #}} {{hearing sloping to a mild slopi ng to a moderate s loping to moderately severe slo ping to severe slo ping to profound f lat high frequency low frequency mid frequency cookie bite atkins curve drop ping to mild to moderately severe SNHL#}} {{with* se nsorineura l hearing loss with condu ctive hearing loss with mixed hearing loss with}} {{excellen t* good fa ir poor no measurable }} word recognitio n. Tympanomet ry: Right Ear:{{Type A* Type As Type Ad Type C Type C, shallow & rounded Ty pe B Type B with large volume Cou ld not maintain a hermetic seal}} Left Ear:{{Type A Type As Type Ad* Type C Type C, shallow & rounded Ty pe B Type B with large volume Cou ld not maintain a hermetic seal}} Health Concerns Section Related Observation LastModified by Organization Detai ls LastModified Time None Recorded Concern Status LastModified by Organization Details LastModified Time None Recorded Advance Directives Directive None Recorded Payers Encounter Date Sequence Insurance Name Policy Number Policy Pope Covered Member ID Pope Member ID Guarantor Name 05/20/[address] [facility]: MEDICARE PPO BLUE (MEDICARE REPLACEMENT PPO) [id number] Hai Gutierrez [id number] Hai Gutierrez Notes Date Note Type Note Provider Name and Address Organization Details Recorded Time 05/20/2024 text/html 68-year-old male presents for updated hearing test. Was evaluated 6 months ago for hearing loss and found to have slight asymmetry, left greater than right. Asymmetry was not enough to warrant MRI of the IAC. 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 Has not noticed any changes in his hearing. Has bilateral tinnitus but no vertigo. FRANCIS GOFF MD [address] [place] [address], [phone], [facility] - [facility] 05/20/2024 14:31:16
--- OUTSIDE RECORDS SUMMARY | 2024-11-18 09:38 | XMS_ITS | Clinical Summary ---
Author Organization [facility] [place] [address] Care Team Providers Care Av[employer] Engineer Name Role Phone Carlos Ivy MD Primary Care Provider [phone] Surgical History Surgery Date Site/Laterality Comments FOOT SURGERY PROCEDURE:FOOT SURGERY WRIST SURGERY PROCEDURE:WRIST SURGERY Social History Tobacco Use Types Packs/Day Years Used Date Smoking Tobacco: Never Smokeless Tobacco: Never Alcohol Use Standard Drinks/Week Comments Not Currently 0 (1 standard drink = 0.6 oz pur e alcohol) Sex and Gender Information Value Date Recorded Sex Assigned at Not on file Legal Sex Male 8:47 PM EST Gender Identity Not on file Sexual Orientation Not on file Obstetrics History Last Filed Vital Signs Vital Sign Reading Time Taken Comments Blood Pressure - - Pulse - - Temperature - - Respiratory Rate - - Oxygen Saturation - - Inhaled Oxygen Concentration - - Weight 107 kg (235 lb) 10/07/2022 11:14 AM EST Height 182.9 cm (6') 10/07/2022 11:14 AM EST Body Mass Index 31.87 10/07/2022 11:14 AM EST Plan of Treatment Health Maintenance Due Date Last Done Comments DTaP,Tdap,and Td Vaccines (1 - Tdap) 1976 Pneumococcal Vaccine: 50+ Ye ars (1 of 1 - PCV) 12/14/2007 Zoster Vaccines (1 of 2) 12/14/2007 Abdominal Aortic Aneurysm (A AA) Screen 09/11/2023 Cholesterol Screening (Lipid Panel) 09/11/2023 Colorectal Cancer Screening: Colonoscopy 09/11/2023 Depression Screening 09/11/2023 Falls Risk Assessment 09/11/2023 Hepatitis C Screening 09/11/2023 Social Influencers of Health Screening 09/11/2023 COVID-19 Vaccine ( - 2023-2 5 season) 2024 Influenza Vaccine (#1) 2024 RSV Immunization Adult Patie nts (1 - 1-dose 75+ series) 2032 HIB Vaccines Aged Out No longer eligi ble based on patient's age to complete this topic HPV Vaccines Aged Out No longer eligi ble based on patient's age to complete this topic Hepatitis A Vaccines Aged Out No long er eligible based on patient's age to complete this topic Hepatitis B Vaccines Aged Out No long er eligible based on patient's age to complete this topic IPV Vaccines Aged Out No longer eligi ble based on patient's age to complete this topic MMR Vaccines Aged Out No longer eligi ble based on patient's age to complete this topic Meningococcal ACWY Vaccine Aged Out N o longer eligible based on patient's age to complete this topic Meningococcal B Vacine Aged Out No lo nger eligible based on patient's age to complete this topic RSV Immunization Patients Un bryan 20 months Aged Out No longer eligible b ased on patient's age to complete this topic Varicella Vaccines Aged Out No longer eligible based on patient's age to complete this topic Care Teams Av[employer] Engineer Relationship Specialty Start Date End Date Carlos Ivy MD [address] [place] [id number] PCP - General 06/24/22
== END 2024-11-18 10:05 | disposition home or self-care (01) ==
PROVIDERS: PCP Internal Medicine; Visit Provider Nurse Practitioner Family
DX: S16.1XXA Strain of muscle, fascia and tendon at neck level, initial encounter (principal)

== ENCOUNTER 2024-11-18 09:00 | Outpatient (REF) | payer MEDICARE, SELFPAY ==
--- NOTE | ~2024-11-18 | XR_ITS ---
EXAMINATION: XR CERVICAL SPINE CLINICAL INFORMATION: M54.2 - Cervicalgia COMPARISON: None available. TECHNIQUE: 2 views of the cervical spine were obtained. FINDINGS: There is a minimal right convex scoliosis, possibly positional. There is a mild reversal of the normal lordosis centered at C4. There is a trace degenerative retrolisthesis of C4 on C5. Alignment is otherwise anatomic. The craniocervical junction and C1-2 articulation are intact and aligned. Moderate to severe disc degeneration present spanning C4-T1. C2-3 and C3-4 appear preserved. There is normal facet alignment with mild multilevel degenerative hypertrophic facet changes. The pre and paravertebral soft tissues appear normal. The lung apices are clear. XR/XR cervical spine 2V IMPRESSION: 1. No acute bony abnormalities. 2. Moderate spondylosis most significant spanning C4-C7. Electronically signed by: Thom Perdomo MD 11/18/2024 10:06 AM EDT
--- OUTSIDE RECORDS SUMMARY | 2024-11-18 10:51 | XMS_ITS | Clinical Summary ---
Author Organization [facility] [place] [address] Care Team Providers Care Sintering Press Operator Name Role Phone Carlos Ivy MD Primary Care Provider [phone] Surgical History Surgery Date Site/Laterality Comments FOOT [...] - 2023-2 5 season) 2024 Influenza Vaccine (Season Ended) 2025 RSV Immunization Adult Patie nts (1 - [...] age to complete this topic Care Teams Sintering Press Operator Relationship Specialty Start Date End Date Carlos Ivy MD [address] [place] [id number] PCP - General 06/24/22
--- OUTSIDE RECORDS SUMMARY | 2024-11-18 10:51 | XMS_ITS | Clinical Summary ---
Author Organization [facility] Address [address] [place] [id number] Care Team Providers Care Operations Analyst Name Role Phone Carlos Ivy MD Primary Care Provider [phone] Allergies Active Allergy Reactions Criticality Noted Date [...] age to complete this topic Care Teams Operations Analyst Relationship Specialty Start Date End Date Carlos Ivy MD [address] [place] [address] PCP - General Internal Medicine 06/24/22
--- OUTSIDE RECORDS SUMMARY | 2024-11-18 10:51 | XMS_ITS | Data Portability ---
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 This would explain his imaging findings and physical exam. If he does not improve then I would suggest a referral to my partner consideration of operative intervention but we are going to give this a little longer with therapy and light duty and I will see him back in 1 month time Not available 12/09/2022 13:37:03 01/06/2023 01/06/2023 I have reviewed his history and physical exam and x-rays and MRI and is my impression he has left shoulder impingement with some biceps tendinitis. At this point he has failed conservative treatment. And he is looking for a operative solution. I am going to refer him to my partner Dr. Mojica for consideration of left shoulder arthroscopy he will remain on light duty he will continue the physical therapy. The patient's history and physical exam are consistent with left impingement syndrome. The space between the undersurface of the acromion and above the humeral head is the impingement interval. Any condition that narrows this interval causes impingement, including the presence of subacromial bone spurs. There are 3 stages of impingement- stages I, II, and III. Stage I impingement occurs in young patients and is likely a result of overuse. Stage II impingement occurs in slightly older patients and likely results in tendonitis or partial tearing of the rotator cuff. Stage III impingement generally occurs in patients older than 50 and is associated with rotator cuff tearing. Conservative treatment options include avoiding aggravating activities, NSAIDS, home exercises or physical therapy, cortisone injections, or further testing. Operative interventions are reserved for patients who fail conservative treatment. The patient's history and physical exam are consistent with biceps tendonitis. The nature of this condition was discussed with the patient. The patient understands this may be a result of an overuse injury or perhaps heavy lifting. Treatment options were gone over with the patient. Biceps tendonitis is initally treated conservatively with rest, avoiding aggravating activities, NSAIDS, physical therapy, and gentle stretches. If initial treatment fails, a corticosteroid injection, an ultrasound examination, or a MRI scan may be ordered. If all conservative treatment fails, certain patients may be good candidates for surgery. Not available 01/06/2023 09:57:30 02/09/2023 02/09/2023 Persistent left shoulder pain following a work-related incident in June 2022. Findings consistent with a SLAP tear, possible posterior labral tear, mild glenohumeral degenerative changes, and impingement syndrome. I went over my findings with him. He has noted some improvement in the last couple of weeks and is anxious to try to avoid surgical intervention if at all possible. I am in agreement. I agree with the recommendation that he should have additional physical therapy and hopefully this will be authorized in an expedited fashion. We will see him back in 4 to 5 weeks to reassess. If he plateaus or his symptoms escalate he would be a candidate to consider a left shoulder arthroscopy, evaluation of the rotator cuff, subacromial decompression/acr omioplasty, glenohumeral debridement, possible posterior labral repair, possible biceps tenodesis. Updated work note provided today. At present he is capable of full duty work. Greater than 30 minutes was spent with the encounter today, including face to face time with the patient, documentation, review of records/imaging if applicable, and coordination of care. PRIOR JK: I have reviewed his history and physical exam and x-rays and MRI and is my impression he has left shoulder impingement with some biceps tendinitis. At this point he has failed conservative treatment. And he is looking for a operative solution. I am going to refer him to my partner Dr. Mojica for consideration of left shoulder arthroscopy he will remain on light duty he will continue the physical therapy. The patient's history and physical exam are consistent with left impingement syndrome. The space between the undersurface of the acromion and above the humeral head is the impingement interval. Any condition that narrows this interval causes impingement, including the presence of subacromial bone spurs. There are 3 stages of impingement- stages I, II, and III. Stage I impingement occurs in young patients and is likely a result of overuse. Stage II impingement occurs in slightly older patients and likely results in tendonitis or partial tearing of the rotator cuff. Stage III impingement generally occurs in patients older than 50 and is associated with rotator cuff tearing. Conservative treatment options include avoiding aggravating activities, NSAIDS, home exercises or physical therapy, cortisone injections, or further testing. Operative interventions are reserved for patients who fail conservative treatment. The patient's history and physical exam are consistent with biceps tendonitis. The nature of this condition was discussed with the patient. The patient understands this may be a result of an overuse injury or perhaps heavy lifting. Treatment options were gone over with the patient. Biceps tendonitis is initally treated conservatively with rest, avoiding aggravating activities, NSAIDS, physical therapy, and gentle stretches. If initial treatment fails, a corticosteroid injection, an ultrasound examination, or a MRI scan may be ordered. If all conservative treatment fails, certain patients may be good candidates for surgery. Not available 02/09/2023 09:55:47 03/16/2023 03/16/2023 Patient has osteoarthritis in the right knee with medial joint space narrowing and patellofemoral arthritis. The nature of this condition and treatment options were discussed with the patient. We talked about how osteoarthritis is a degenerative disease and symptoms may include pain, swelling, stiffness. Pain may be worse following activity, with overuse, and with prolonged periods of rest. As arthritis worsens, the symptoms may worsen too. Initial treatment includes rest, ice, NSAIDS, Tylenol, and gentle stretching exercises. If symptoms persist physical therapy or a cortisone injection may be warranted. We discussed the benefits of taking glucosamine and chondroitin and how this may provide pain relief. If conservative treatment does not provide adequate pain relief and symptoms persist, the patient may be a good candidate for a total joint replacement. Patient tolerated the injection well. Postinjection instructions given. Frequency of injection was reviewed. Patient will follow-up in 3 to 4 weeks if symptoms have not improved, sooner for any complications. All questions answered to their satisfaction. [email or web address] Not available 03/16/2023 16:30:03 03/16/2023 03/16/2023 His left shoulde r pain has improved. At this point he finds his symptoms manageable and tolerable. Unfortunately, he never was authorized to pursue physical therapy which may have been beneficial to him. We reviewed a home exercise program. He is going to monitor his symptoms for now and if things change or escalate he will come back for reevaluation. He will come back through our urgent care later today for an evaluation of his right knee. Updated work note provided today. He is available for regular duty work. As we are not planning on any additional treatment at the moment he has reached maximal medical improvement. PRIOR: Persistent left shoulder pain following a work-related incident in June 2022. Findings consistent with a SLAP tear, possible posterior labral tear, mild glenohumeral degenerative changes, and impingement syndrome. I went over my findings with him. He has noted some improvement in the last couple of weeks and is anxious to try to avoid surgical intervention if at all possible. I am in agreement. I agree with the recommendation that he should have additional physical therapy and hopefully this will be authorized in an expedited fashion. We will see him back in 4 to 5 weeks to reassess. If he plateaus or his symptoms escalate he would be a candidate to consider a left shoulder arthroscopy, evaluation of the rotator cuff, subacromial decompression/acr omioplasty, glenohumeral debridement, possible posterior labral repair, possible biceps tenodesis. Updated work note provided today. At present he is capable of full duty work. PRIOR JK: I have reviewed his history and physical exam and x-rays and MRI and is my impression he has left shoulder impingement with some biceps tendinitis. At this point he has failed conservative treatment. And he is looking for a operative solution. I am going to refer him to my partner Dr. Mojica for consideration of left shoulder arthroscopy he will remain on light duty he will continue the physical therapy. The patient's history and physical exam are consistent with left impingement syndrome. The space between the undersurface of the acromion and above the humeral head is the impingement interval. Any condition that narrows this interval causes impingement, including the presence of subacromial bone spurs. There are 3 stages of impingement- stages I, II, and III. Stage I impingement occurs in young patients and is likely a result of overuse. Stage II impingement occurs in slightly older patients and likely results in tendonitis or partial tearing of the rotator cuff. Stage III impingement generally occurs in patients older than 50 and is associated with rotator cuff tearing. Conservative treatment options include avoiding aggravating activities, NSAIDS, home exercises or physical therapy, cortisone injections, or further testing. Operative interventions are reserved for patients who fail conservative treatment. The patient's history and physical exam are consistent with biceps tendonitis. The nature of this condition was discussed with the patient. The patient understands this may be a result of an overuse injury or perhaps heavy lifting. Treatment options were gone over with the patient. Biceps tendonitis is initally treated conservatively with rest, avoiding aggravating activities, NSAIDS, physical therapy, and gentle stretches. If initial treatment fails, a corticosteroid injection, an ultrasound examination, or a MRI scan may be ordered. If all conservative treatment fails, certain patients may be good candidates for surgery. Not available 03/20/2023 10:18:05 Plan of Treatment Reminders Order Date Submit Date Provider Last Modified By Organization Details Last Modified Time Details Appointments None recorded. Lab None recorded. Referral None recorded. Procedures None recorded. Surgeries None recorded. Imaging XR, knee, 4 or more view 2022 023 [email or web address] 21 [facility], [address], [address], [place], [address], 3 17:02:02 Medication Orders Kenalog 40 mg/mL suspension for injection 2022 023 [email or web address] 21 [id number], [address], [place], [address], 3 17:02:02 lidocaine (PF) 100 mg/5 mL (2 %) injection syringe 2022 023 [email or web address] [id number], [address] [facility] , [place], [address], 17:02:02 Patient TargetsNo targets recorded. Patient Instructions Encounter Date Encounter Id Patient Instructions Last Modified By Organization Details Last Modified Time 03/16/2023 [id number] 4 views of the {{Left Right*}} knee were obtained in the {{[place]* Dany} } office including AP, Bradley, lateral (weightbearing), and sunrise. X-rays demonstrated {{normal* mildly decreased}} bony mineralization. Joint spaces {{well-maintained decrease medially decreased Laterally decrease d patellafemoral dec reased all compartments decre ase medially and in the patellofemoral compartment#}}. No evidence of acute injury or fracture. Findings: {{ Osteoarthritis right knee.#}} X-ray interpretation by: HANNAH [email or web address] Not available 03/16/2023 16:27:53 Reason for Referral None Reported. Problems Name Problem SNOMED Code Status Onset Date Resolution Date Notes Provider Name and Address Organization Details Recorded Time Impingement syndrome of left shoulder region 9138523651185 04 Active 2022 Chirag Batres MD [address], [place], [address], [place] [facility] 3 13:36:45 Biceps tendinitis 345187363 Active [address], [place], [address], [place] [facility], [facility] 3 09:59:00 Problem Notes None recorded. Procedures Surgical History Date Name Laterality Status Provider Name and Address Organization Details Recorded Time 3 MICHELLE Knee Injection completed DON MARIN PA-C [address], [place], [address], [place] [facility] 03/16/2023 16:28:33 Imaging Results None recorded. Procedure Notes None recorded. Medical Equipment None Reported. Allergies No known drug allergies Medications Name Sig Start Date Stop Date Status Note LastModified by Organization Details LastModified Time atorvastati n 40 mg tablet active Not Available Not Available Not Available meloxicam 15 mg tablet TAKE 1 TABLET (15 MG TOTAL) BY MOUTH DAILY NEEDED FOR PAIN FOR UP TO 21 DAYS. 03/16 completed Not Available Not Available Not Available Kenalog 40 mg/mL suspension for injection Take 1 mL by injection route. 2022 active Not Available Not Available Not Avai lable tamsulosin 0.4 mg capsule active Not Available Not Available Not Available ibuprofen 600 mg tablet TAKE 1 TABLET BY MOUTH EVERY 6 HOURS NEEDED FOR PAIN 03/16 completed Not Available Not Available Not Available methylpredn isolone 4 mg tablets in a dose pack TAKE 6 TABLETS ON DAY 1 DIRECTED ON PACKAGE AND DECREASE BY 1 TAB EACH DAY FOR A TOTAL OF 6 DAYS 03/16 completed Not Available Not Available Not Available fluoxetine 20 mg capsule TAKE 1 CAPSULE BY MOUTH EVERY DAY active Not Available Not Available No t Available finasteride 5 mg tablet active Not Available Not Available Not Available amoxicillin 875 mg-potassiu m clavulanate 125 mg tablet TAKE 1 TABLET BY MOUTH EVERY 12 HOURS FOR 10 DAYS 03/16 completed Not Available Not Available Not Available tamsulosin active Not Available Not Av ailable Not Available Vitamin D active Not Available Not Elena ilable Not Available Baby Aspirin active Not Available Not Available Not Available CoQ-10 active Not Available Not Availa ble Not Available lidocaine (PF) 100 mg/5 mL (2 %) injection syringe Take 2 mL by injection route. 2022 active Not Available Not Available Not Avai lable Paxlovid 300 mg (150 mg x 2)-100 mg tablets in a dose pack TAKE 3 TABLETS BY MOUTH TWICE A DAY FOR 5 DAYS 03/16 completed Not Available Not Available Not Available Vitals Date Recorded Body height Provider Name an d Address Organization Details Last Updated DateTime 12/09/2022 182.88 cm Elsa Pritchard [place] - [facility] 12/09/2022 13:25:18 Date Recorded Body height Body mass index (BMI) Body weight Provider Name and Address Organization Details Last Updated DateTime 01/06/2023 182.88 cm 31.9 kg/m2 137212.21 g Angely Robin [place] [facility] 01/06/2023 09:41:57 Date Recorded Body height Body mass index (BMI) Body weight Provider Name and Address Organization Details Last Updated DateTime 02/09/2023 182.88 cm 31.7 kg/m2 072806.[address] [place] - [facility] 02/09/2023 09:25:44 Date Recorded Body height Body mass index (BMI) Body weight Provider Name and Address Organization Details Last Updated DateTime 03/16/2023 182.88 cm 31.7 kg/m2 157049.61 g Angely Robin [place] [facility] 03/16/2023 14:14:15 Social History Question Answer Notes LastModified by Organizat ion Details LastModified Time Tobacco Smoking Status Never Smoker Genie Ольга book[place], [place] - [facility] 11/04/2022 11:19:45 What Is Your Level Of Alcohol Consumption? None [email or web address] Information not available 11/04/2022 Do You Use Any Illicit Or Recreational Drugs? No [email or web address] Information not available 11/04/2022 Do You Or Have You Ever Used Any Other Forms Of Tobacco Or Nicotine? No [email or web address] Information not available 11/04/2022 Sex: Unknown Functional Status None recorded. Mental Status None recorded. Family History Relationship Description Onset Age of this Age Resolved Age Notes LastModified by Organization Details LastModified Time Mother Family history of malignant neoplasm [email or web address] Not available 2022 11:23:36 Mother Arthritis [email or web address] Not availab le 11/04/2022 11:24:24 Sister Family history of malignant neoplasm [email or web address] Not available 2022 11:23:41 Brother Family history of malignant neoplasm [email or web address] Not available 2022 11:23:44 Father Diabetes mellitus Not available 2022 11:23:54 Father Heart disease [email or web address] Not available 2022 11:24:04 Father Hyperlipidem ia [email or web address] Not available 01/16 09:21:43 Medical History Condition Response Liver Disease Y Past Encounters Encounter ID Performer Location Encounter Start Date Encounter Closed Date Diagnosis/Indication Diagnosis SNOMED-CT Code Diagnosis ICD10 Code Diagnosis Note [id number] MD KATHIA Jennings [address] [place] [address] 11/04/2022 11:10:06 11/04/2022 11:29:41 Impingement syndrome of left shoulder region [id number] 02734 M75.42 The patient's history and physical exam are consistent with {{left* ri ght bilate ral}} impingemen t syndrome. The space between the undersurfa ce of the acromion and above the humeral head is the impingemen t interval. Any condition that narrows this interval causes impingemen t, including the presence of subacromia l bone spurs. There are 3 stages of impingemen t- stages I, II, and III. Stage I impingemen t occurs in young patients and is likely a result of overuse. Stage II impingemen t occurs in slightly older patients and likely results in tendonitis or partial tearing of the rotator cuff. Stage III impingemen t generally occurs in patients older than 50 and is associated with rotator cuff tearing. Conservati ve treatment options include avoiding aggravatin g activities , NSAIDS, home exercises or physical therapy, cortisone injections , or further testing. Operative interventi ons are reserved for patients who fail conservati ve treatment. Biceps tendinitis 304545 007 M75.22 The patient's history and physical exam are consistent with biceps tendonitis . The nature of this condition was discussed with the patient. The patient understand s this may be a result of an overuse injury or perhaps heavy lifting. Treatment options were gone over with the patient. Biceps tendonitis is initally treated conservati vely with rest, avoiding aggravatin g activities , NSAIDS, physical therapy, and gentle stretches. If initial treatment fails, a corticoste roid injection, an ultrasound examinatio n, or a MRI scan may be ordered. If all conservati ve treatment fails, certain patients may be good candidates for surgery. I have reviewed his history and physical exam and x-rays and clearly he has left shoulder tendinitis there may be a component of biceps tendinitis . In my opinion he would benefit from physical therapy and I think he needs to continue with this. If that does not solve his issue then he may be a candidate for surgical interventi on He will continue on light duty we will see him back in a month [id number] MD KATHIA Jennings [place] [address] [place] [address] 12/09/2022 13:23:17 12/09/2022 13:41:26 Biceps tendinitis 267831127 M75.22 The patient's history and physical exam are consistent with biceps tendonitis . The nature of this condition was discussed with the patient. The patient understand s this may be a result of an overuse injury or perhaps heavy lifting. Treatment options were gone over with the patient. Biceps tendonitis is initally treated conservati vely with rest, avoiding aggravatin g activities , NSAIDS, physical therapy, and gentle stretches. If initial treatment fails, a corticoste roid injection, an ultrasound examinatio n, or a MRI scan may be ordered. If all conservati ve treatment fails, certain patients may be good candidates for surgery. I have reviewed his history and physical exam and x-rays and clearly he has left shoulder tendinitis there may be a component of biceps tendinitis . In my opinion he would benefit from physical therapy and I think he needs to continue with this. If that does not solve his issue then he may be a candidate for surgical interventi on He will continue on light duty we will see him back in a month Impingemen t syndrome of left shoulder region 7078323668 20052 M75.42 The patient's history and physical exam are consistent with {{left* ri ght bilate ral}} impingemen t syndrome. The space between the undersurfa ce of the acromion and above the humeral head is the impingemen t interval. Any condition that narrows this interval causes impingemen t, including the presence of subacromia l bone spurs. There are 3 stages of impingemen t- stages I, II, and III. Stage I impingemen t occurs in young patients and is likely a result of overuse. Stage II impingemen t occurs in slightly older patients and likely results in tendonitis or partial tearing of the rotator cuff. Stage III impingemen t generally occurs in patients older than 50 and is associated with rotator cuff tearing. Conservati ve treatment options include avoiding aggravatin g activities , NSAIDS, home exercises or physical therapy, cortisone injections , or further testing. Operative interventi ons are reserved for patients who fail conservati ve treatment. [id number] MD KATHIA Jennings [place] [address] [place] [address] 01/06/2023 09:36:21 01/06/2023 10:00:31 Impingement syndrome of left shoulder region [id number] 53294 M75.42 Biceps tendinitis 023127 007 M75.22 [id number] MD KATHIA Dodson [address] [address] 02/09/2023 09:21:33 02/09/2023 09:54:28 Impingement syndrome of left shoulder region 3075867777 81919 M75.42 Biceps tendinitis 339617 007 M75.22 [id number] MD KATHIA Dodson [address] [address] 03/16/2023 11:08:43 03/16/2023 11:41:41 Impingement syndrome of left shoulder region 3026993299 97629 M75.42 Biceps tendinitis 416036 007 M75.22 [id number] Yemi Mojica MD [facility] [address] [place] [address] 03/16/2023 13:40:11 03/16/2023 15:29:47 Pain of right knee joint [id number] 70693 M25.561 Health Concerns Section Related Observation LastModified by Organization Detai ls LastModified Time None Recorded Concern Status LastModified by Organization Details LastModified Time None Recorded Advance Directives Directive None Recorded Payers Encounter Date Sequence Insurance Name Policy Number Policy Pope Covered Member ID Pope Member ID Guarantor Name 12/09/2022 TAMIKANine [employer] Hai Gutierrez 01/06/2023 [employer] Hai Gutierrez 03/16/2023 1 [place] [id number] Hai Gutierrez [id number] Hai Gutierrez 03/16/2023 1 [place] [id number] Hai Gutierrez [id number] Hai Gutierrez Notes Date Note Type Note Provider Name and Address Organization Details Recorded Time 12/09/2022 text/html Hai returns fo r follow-up of his left shoulder. He is in physical therapy. He is getting a little bit better but still has a significant amount of pain in his shoulder. Chirag Batres MD [address], [place], [address], [place] [facility] 12/09/2022 13:37:25 01/06/2023 text/html Hia returns fo r a follow-up of his left shoulder. He had injured his left shoulder at work in June lifting a box. MRI scan was done and July that showed impingement tendinitis and biceps tendinitis he has been treated with cortisone injection and extensive physical therapy and his symptoms persist. He complains of pain in his left shoulder laterally with activity. He is working but on light duty Chirag Batres MD [address], [place], [id number], [place] [facility] 01/06/2023 10:00:04 02/09/2023 text/html 67-year-old male presenting for an evaluation of his left shoulder. He injured the left shoulder at work in June 2022 lifting a box. He has been under the care of Dr. Batres. His last physical therapy was about a month ago, apparently, additional physical therapy has been recommended but authorization has not been forthcoming. He reports in the last week or 2 his symptoms have been slowly improving. He notes pain over the posterior lateral shoulder with radiation to the deltoid particularly with abduction and movement away from the body. He admits he is essentially working regular duty despite Dr. Batres writing work restrictions at the last visit. He is anxious to try to avoid surgery, but finds his current symptomatology persistent and limiting. History of acid reflux. Non-smoker. 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 PRIOR JK:Hai returns for a follow-up of his left shoulder. He had injured his left shoulder at work in June lifting a box. MRI scan was done and July that showed impingement tendinitis and biceps tendinitis he has been treated with cortisone injection and extensive physical therapy and his symptoms persist. He complains of pain in his left shoulder laterally with activity. He is working but on light duty Yemi Mojica MD [address], [place], [id number], [place] [facility] 02/09/2023 10:01:19 03/16/2023 text/html Patient is a 67-year-old male who presents today with right knee pain. He denies any injury or trauma that caused the onset of his symptoms. He started to have symptoms last year when he was working on a deck. He eventually improved with relative rest, ice and Motrin. Unfortunately, he again worked on a deck in November of this year and has had pain since. Symptoms were initially intermittent and worsened with activity. They have now become constant over the weekend and he has trouble sleeping. He is frustrated with his ongoing complaints and presents today for orthopedic consultation. He has been seen in our practice by Dr. Mojica for his shoulder. No numbness or tingling. No redness or warmth. No trauma. No locking or giving out of his knee. DON MARIN PA-C [address], [place], [id number], [facility] - [facility] 03/16/2023 16:30:41 03/16/2023 text/html Patient returns for an evaluation of his left shoulder. He tells me he never heard anything about attending physical therapy. He feels his symptoms are improving. With reaching activities his pain can be a 1/10. Overall, he feels that his current symptomatology is manageable and tolerable. He has occasional nighttime pain. He denies radiating pain down the arm. He reports he is having persistent increasing right knee pain for which he would like an evaluation at some point. PRIOR:67-year-old male presenting for an evaluation of his left shoulder. He injured the left shoulder at work in June 2022 lifting a box. He has been under the care of Dr. Batres. His last physical therapy was about a month ago, apparently, additional physical therapy has been recommended but authorization has not been forthcoming. He reports in the last week or 2 his symptoms have been slowly improving. He notes pain over the posterior lateral shoulder with radiation to the deltoid particularly with abduction and movement away from the body. He admits he is essentially working regular duty despite Dr. Batres writing work restrictions at the last visit. He is anxious to try to avoid surgery, but finds his current symptomatology persistent and limiting.History of acid reflux. Non-smoker. 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 PRIOR JK:Hai returns for a follow-up of his left shoulder. He had injured his left shoulder at work in June lifting a box. MRI scan was done and July that showed impingement tendinitis and biceps tendinitis he has been treated with cortisone injection and extensive physical therapy and his symptoms persist. He complains of pain in his left shoulder laterally with activity. He is working but on light duty Yemi Mojica MD [address], [place], [id number], [place] - [facility] 03/20/2023 10:18:22
== END 2024-11-18 09:01 | disposition home or self-care (01) ==
LOC: HO.HMGCX 09:00
PROVIDERS: PCP Internal Medicine; Visit Provider Nurse Practitioner Family
DX: M54.2 Cervicalgia (principal); S16.1XXA Strain of muscle, fascia and tendon at neck level, initial encounter
CPT/HCPCS: 72040; 99212

== ENCOUNTER → 2024-11-18 09:48 | Outpatient (BNV) | payer MEDICARE, SELFPAY | PROVIDERS: PCP Internal Medicine; Visit Provider Radiology Diagnostic Radiology | DX: M47.892 Other spondylosis, cervical region (principal) | CPT/HCPCS: 72040 ==